=== PATIENT | male | born 1975 | race Caucasian/White ===

== ENCOUNTER 2024-12-05 17:01 | Emergency (ER) | payer OTHER, SELFPAY ==
[2024-12-05 17:12] VITALS: BP 202/137
[2024-12-05 17:54] VITALS: BP 190/127
[2024-12-05 17:56] VITALS: BMI 35.4
[2024-12-05 18:22] LABS: Hematocrit 47.8 % (39.0-52.0); Hemoglobin 16.1 g/dL (13.0-18.0); Mean Corp Hgb Conc. 33.7 g/dL (33.0-37.0); Mean Corpuscular Hgb 27.3 pg (27.0-31.0); Mean Corpuscular Volume 81.2 fL (80.0-94.0); Mean Platelet Volume 9.5 fL (7.4-10.4); Platelet Count 297 10^3/uL (130-400); Red Blood Cell Count 5.89 10^6/uL (4.70-6.10); Red Cell Dist. Width 12.6 % (11.5-14.5); White Blood Cell Count 7.7 10^3/uL (4.8-10.8)
[2024-12-05 18:39] LABS: ALT (SGPT) 51 U/L (0-50); AST (SGOT) 33 U/L (17-59); Alkaline Phosphatase 83 U/L (38-126); Blood Urea Nitrogen 17 mg/dl (9-20); Calcium 9.5 mg/dl (8.4-10.2); Carbon Dioxide 27 mmol/L (22-30); Chloride 100 mmol/L (98-107); Estimated Creatinine Clearance > 125 ml/min; Glucose 105 mg/dl (70-99); Potassium 4.3 mmol/L (3.5-5.1); Sodium 139 mmol/L (135-145); Total Bilirubin 0.9 mg/dl (0.2-1.3); Total Protein 8.1 g/dl (6.3-8.2); eGFR > 60.00
--- NOTE | 2024-12-05 18:55 | ED.GENMED ---
History of Present Illness
General
Chief Complaint: Cardiac Symptoms
Time Seen by Provider: 12/05/24 17:19
History of Present Illness
History of Present Illness:
48-year-old male presents the emergency department after seeing his primary care physician and being noted to have markedly elevated blood pressure. He reportedly also had an abnormal EKG. He states he felt well and this was a routine visit. He
does not see doctors routinely, notes that approximately 3 years of past since his last PCP visit, did have borderline high blood pressure at that time. Currently he denies any chest pain, shortness of breath with exertion, leg swelling, or
headaches.
Review of Systems
Review of Systems
Allergies reviewed?: Yes
All Other Systems: ROS reviewed and negative except as documented in HPI and ROS
Phy Exam
Physical Exam
Physical Exam:
GEN: Well appearing, NAD, WDWN
HEENT: Oral mucosa moist, no scleral icterus
Cardiac: Regular rate and rhythm, no murmurs
Lung: No respiratory distress, no tachypnea, lungs clear to auscultation bilaterally
MSK: No gross deformity or injuries
Skin: Good color, no pallor or jaundice, no rashes
Neuro: AO x3, moves all extremities freely
Psych: Calm, cooperative
Course
Orders/Labs/Results
Orders:
Orders
12/05/24 17:01
Electrocardiogram (*1) Urgent
Reason for Study: Abnormal EKG
12/05/24 17:02
EKG- Treatment ONCE
12/05/24 18:06
CMP [Comprehensive Metabolic Panel] Urgent
Complete Blood Count/No Diff Urgent
12/05/24 18:58
Amlodipine [Norvasc] 5 mg PO NOW STA
Abnormal Lab Results
12/05/24
18:06
Glucose 105 H mg/dl
(70-99)
ALT 51 H U/L
(0-50)
12/05/24 18:06
12/05/24 18:06
Vital Signs
Initial and Last Documented VS:
Initial Vital Signs
Temp Pulse Resp BP Pulse Ox
98.3 F 104 18 202/137 97
12/05/24 17:12 12/05/24 17:12 12/05/24 17:12 12/05/24 17:12 12/05/24 17:12
Last Documented Vital Signs
Temp Pulse Resp BP Pulse Ox
98.3 F 88 18 171/120 98
12/05/24 17:12 12/05/24 19:29 12/05/24 19:29 12/05/24 19:29 12/05/24 19:29
MDM/Problems Addressed
MDM/Problems Addressed:
Patient's EKG does show Q waves inferiorly however he has no acute chest pain and there are no ST changes, no comparisons to prior. Blood pressure remains markedly elevated thus will initiate him on antihypertensive therapy. Labs otherwise
reassuring. No evidence of endorgan damage warranting IV antihypertensives. Will start on 5 mg amlodipine and recommend outpatient follow-up with the [facility] medicine residency clinic
*Critical Care Note
Total Time (30-74mins, 75-104mins- exclusive of procedures): Not Applicable
ED Attending Note
-
Portions of this chart may have been created with voice recognition software.� Occasional wrong word or��sound alike� substitutions may have occurred due to the inherent limitations of voice recognition software.
Discharge Plan
Departure
Patient Disposition: Home (Routine Discharge)
Date of Disposition: 12/05/24
Time of Disposition: 18:55
Patient with high blood pressure during this ER visit?: No
Discharge Problem:
Hypertension, uncontrolled
Instructions: BLOOD PRESSURE
Prescriptions:
New
amlodipine 5 mg tablet
5 mg PO DAILY Qty: 30 0RF
Interventions
Interventions:
*Risk Screen - Suicide Last Done: 12/05/24 17:12
*General Assessment Last Done: 12/05/24 17:12
*Neglect/Abuse Screening Last Done: 12/05/24 17:12
*ED- Fall Risk Assessment Last Done: 12/05/24 18:00
*ED COVID-19 Vaccine History Last Done: 12/05/24 17:12
*Nursing Disposition Last Done: 12/05/24 19:29
ED- Pulmonary Assessment Last Done: 12/05/24 17:56
ED- Cardiac Assessment Last Done: 12/05/24 17:56
Discharge Date and Time
Discharge Date/Time: 12/05/24 19:25
Print Language: TAMAZIGHT
[2024-12-05] MEDS: NORVASC 5 MG PO (19:12)
--- NOTE | 2024-12-05 19:27 | EDRN ---
Discharge instructions given to patient. Verbalized understanding. Ambulated with steady gait to the lobby.
[2024-12-05 19:29] VITALS: BP 171/120
== END 2024-12-05 19:25 | disposition home or self-care (01) ==
LOC: EMR 17:01
PROVIDERS: Physician Assistant; EMERGENCY PHYSICIAN Emergency Medicine; FAMILY PHYSICIAN General Practice
DX: I10 Essential (primary) hypertension (principal); R94.31 Abnormal electrocardiogram [ECG] [EKG]
CPT/HCPCS: 99284; 80053; 85027; 93005

== ENCOUNTER → 2025-02-17 08:32 | Outpatient (REF) | payer OTHER, SELFPAY | LOC: RCS 08:32 | PROVIDERS: ATTENDING PHYSICIAN Internal Medicine; FAMILY PHYSICIAN General Practice | DX: E66.811 Obesity, class 1 (principal); R94.31 Abnormal electrocardiogram [ECG] [EKG] | CPT/HCPCS: 93306 ==

== ENCOUNTER → 2025-02-25 08:04 | Outpatient (REF) | payer OTHER, SELFPAY | LOC: RCS 08:04 | PROVIDERS: ATTENDING PHYSICIAN Internal Medicine; FAMILY PHYSICIAN General Practice | DX: E66.811 Obesity, class 1 (principal); R94.31 Abnormal electrocardiogram [ECG] [EKG] | CPT/HCPCS: 78452; 93017; A9500 ==